=== PATIENT | male | born 1925 | race Caucasian/White ===

== ENCOUNTER 2017-01-18 09:20 | Inpatient (IN) | payer MEDICARE, BC ==
[~2017-01-18] VITALS: Ht 170.2 cm; Wt 66.4 kg
[~2017-01-18 09:20] MED LIST: CHOL100011 PO; FLUD0.1T PO; OCCUVITE MC; OXYCODONE PO; PANT40TA3 PO
[2017-01-18] MEDS ORDERED: SODIUM CHLORIDE 0.9% 1,000ML IVBOLUS ONE (09:30)
[2017-01-18] MEDS ORDERED: SODIUM CHLORIDE FLUSH 10ML SYR IVF ONE (09:30)
[2017-01-18 10:00] LABS: ASPARTATE AMINO TRANSFERASE 13 U/L (15-37); BLOOD UREA NITROGEN 10 mg/dL (7-18)
[2017-01-18 10:08] LABS: IS PT STATUS REG ER OR PRE ER? YES
[2017-01-18] MEDS ORDERED: TAMS-11 PO (10:23)
[2017-01-18] MEDS ORDERED: POTA10TA11 PO (10:23)
[2017-01-18] MEDS ORDERED: CHOLECALCIFEROL 1,000 UNIT TABLET PO PRN (12:00)
[2017-01-18] MEDS ORDERED: POLYETHYLENE GLYCOL 17 GM PACKET PO PRN (12:00)
[2017-01-18] MEDS ORDERED: ONDANSETRON 2MG/ML, 2ML IVP PRN (12:00)
[2017-01-18] MEDS ORDERED: OXYCODONE 5 MG PO SCH (12:00)
[2017-01-18] MEDS ORDERED: ENALAPRILAT 1.25 MG/ML, 2ML IVPush PRN (12:00)
[2017-01-18] MEDS ORDERED: ONDANSETRON ODT 4 MG PO PRN (12:00)
[2017-01-18] MEDS ORDERED: ENOXAPARIN 40 MG/0.4 ML SQ SCH (12:00)
[2017-01-18] MEDS ORDERED: POTASSIUM CHLORIDE 20 MEQ TAB.ER.PRT PO ONE ×2 (12:30→19:30)
[2017-01-18 15:55] VITALS: BP 145/67
[2017-01-18] MEDS: SODIUM CHLORIDE 0.9% 1,000 ML IV SCH (18:33)
[2017-01-18] MEDS: MULTIVITAMINS/MINERALS TABLET PO SCH (18:41)
[2017-01-18] MEDS: FLUDROCORTISONE 0.1 MG TABLET PO SCH ×3 (20:31→21:00)
[2017-01-18] MEDS: OXYcodone IR 5MG TABLET PO PRN (20:31)
[2017-01-18 20:42] VITALS: BP 163/87
[2017-01-18 23:58] VITALS: BP 164/71
[2017-01-19 01:46] VITALS: BP 164/71
[2017-01-19 05:27] LABS: ASPARTATE AMINO TRANSFERASE 15 U/L (15-37); BLOOD UREA NITROGEN 7 mg/dL (7-18)
[2017-01-19] MEDS: SODIUM CHLORIDE 0.9% 1,000 ML IV SCH ×4 (07:00→16:11)
[2017-01-19 07:09] VITALS: BP 158/80
[2017-01-19] MEDS ORDERED: CEFAZOLIN PMX 1GM/50ML 50 ML IVPB ONE (08:30)
[2017-01-19] MEDS: SENNA/DOCUSATE TABLET PO SCH (09:00)
[2017-01-19] MEDS ORDERED: MIDAZOLAM 1 MG/ML, 5ML ONE (10:14)
[2017-01-19] MEDS ORDERED: FENTANYL PF 100 MCG/2ML ONE ×2 (10:14→10:29)
[2017-01-19] MEDS ORDERED: LIDOCAINE 2%, 20ML ONE (10:15)
[2017-01-19] MEDS ORDERED: CEFAZOLIN 1,000 MG ONE (10:32)
[2017-01-19] MEDS ORDERED: ACETAMINOPHEN 325 MG TABLET PO PRN (11:30)
[2017-01-19] MEDS: MULTIVITAMINS/MINERALS TABLET PO SCH (12:27)
[2017-01-19] MEDS: TAMSULOSIN 0.4 MG CAP.ER.24H PO SCH (12:27)
[2017-01-19] MEDS: OXYcodone IR 5MG TABLET PO PRN ×2 (13:51→20:00)
[2017-01-19 16:03] VITALS: BP 143/72
[2017-01-19 18:42] VITALS: BP 137/75
[2017-01-19] MEDS: CEFAZOLIN PMX 1GM/50ML 50 ML IVPB SCH (19:04)
[2017-01-19] MEDS: SODIUM CHLORIDE FLUSH 10ML SYR IVF SCH (20:00)
[2017-01-19] MEDS: FLUDROCORTISONE 0.1 MG TABLET PO SCH (20:01)
[2017-01-20 01:13] VITALS: BP 136/73
[2017-01-20] MEDS: CEFAZOLIN PMX 1GM/50ML 50 ML IVPB SCH (02:59)
[2017-01-20] MEDS ORDERED: OXYcodone IR 5MG TABLET PO ONE (03:00)
[2017-01-20 06:01] LABS: BLOOD UREA NITROGEN 7 mg/dL (7-18)
[2017-01-20 07:01] VITALS: BP 152/77
[2017-01-20] MEDS: SODIUM CHLORIDE FLUSH 10ML SYR IVF SCH (08:54)
[2017-01-20] MEDS: MULTIVITAMINS/MINERALS TABLET PO SCH (08:54)
[2017-01-20] MEDS: TAMSULOSIN 0.4 MG CAP.ER.24H PO SCH (08:54)
[2017-01-20] MEDS: SENNA/DOCUSATE TABLET PO SCH (08:54)
[2017-01-20] MEDS ORDERED: CARVEDILOL 3.125 MG TABLET PO SCH (09:00)
[2017-01-20] MEDS ORDERED: CARV3.1212 PO (09:35)
== END 2017-01-20 11:20 | disposition home or self-care (01) | DRG 243 ==
LOC: ED 11:01 → EDIP 11:06 → 5SO 12:28 → DCLOUNGE 01-20 10:56
PROVIDERS: ADMIT Hospitalist; ATTEND Hospitalist
PROC: 0JH606Z Insertion of Pacemaker, Dual Chamber into Chest Subcutaneous Tissue and Fascia, Open Approach (ICD-10-PCS; principal; 2017-01-19)
PROC: 02H63JZ Insertion of Pacemaker Lead into Right Atrium, Percutaneous Approach (ICD-10-PCS; 2017-01-19)
PROC: 02HK3JZ Insertion of Pacemaker Lead into Right Ventricle, Percutaneous Approach (ICD-10-PCS; 2017-01-19)
DX: R00.1 Bradycardia, unspecified (principal); E44.1 Mild protein-calorie malnutrition; I50.30 Unspecified diastolic (congestive) heart failure; E16.2 Hypoglycemia, unspecified; D53.9 Nutritional anemia, unspecified; E87.6 Hypokalemia; N40.0 Benign prostatic hyperplasia without lower urinary tract symptoms; D72.829 Elevated white blood cell count, unspecified; F17.200 Nicotine dependence, unspecified, uncomplicated; M54.9 Dorsalgia, unspecified; R42 Dizziness and giddiness; G89.29 Other chronic pain; R31.29 Other microscopic hematuria; H35.30 Unspecified macular degeneration; I11.0 Hypertensive heart disease with heart failure; I95.1 Orthostatic hypotension; R32 Unspecified urinary incontinence; Z87.11 Personal history of peptic ulcer disease; Z90.81 Acquired absence of spleen; Z88.5 Allergy status to narcotic agent; Z90.49 Acquired absence of other specified parts of digestive tract; Z68.22 Body mass index [BMI] 22.0-22.9, adult; Z91.81 History of falling
CPT/HCPCS: 33208; 36415; 71010; 80048; 80053; 81001; 82040; 82607; 82746; 83735; 83880; 84436; 84439; 84443; 84484; 85025; 85610; 85730; 87086; 93005; 93306; 96360; 96361; C1779; C1785; C1892; J0690; J1650; J2250; J3010; J3490; J7030; Q9967